=== PATIENT | male | born 1975 | race Caucasian/White ===

== ENCOUNTER 2017-04-03 05:26 | Emergency (ER) | payer MEDICARE | END 2017-04-03 07:20 | disposition home or self-care (01) | LOC: ER1 05:26 | DX: M65.4 Radial styloid tenosynovitis [de Quervain] (principal); F17.210 Nicotine dependence, cigarettes, uncomplicated | CPT/HCPCS: 29130; 73110; 99283 ==

== ENCOUNTER 2021-01-18 08:38 | Emergency (ER) | payer MEDICARE ==
[2021-01-18] MEDS ORDERED: CYCLOBENZAPRINE10 MG PO (10:20)
[2021-01-18] MEDS ORDERED: MEDROL DOSEPAK 24 MG PO (10:20)
== END 2021-01-18 10:20 | disposition home or self-care (01) ==
LOC: ER1 08:38
DX: G89.29 Other chronic pain (principal); M54.5 Low back pain; F17.210 Nicotine dependence, cigarettes, uncomplicated
CPT/HCPCS: 96372; 99283; J1100; J1885